=== PATIENT | female | born 1955 | race Caucasian/White ===

== ENCOUNTER 2019-06-28 10:03 | Outpatient (REF) | payer MEDICARE, OTHER, SELFPAY ==
[2019-06-28 19:30] LABS: HCT 39.9 % (36.0-46.0); HGB 13.1 g/dL (12.0-15.5); Mean Corp. HGB Concentration 32.8 g/dL (32.0-36.0); Mean Corpuscular Volume 94.5 fL (80-95); Mean Platelet Volume 10.9 fL (8.0-11.0); Platelet Count 261 x1000/uL (130-400); RBC 4.22 m/cumm (4.00-5.20); RBC Distribution Width 13.2 % (11.7-14.6); White Blood Cell Count 5.63 k/cumm (4.4-10.8)
[2019-06-28 19:39] LABS: Anion Gap 8.4 mmol/L (3-11); BUN 14 mg/dL (7-18); CO2 30.6 mmol/L (21.0-32.0); CREATININE 0.82 mg/dL (0.55-1.02); Calcium 9.6 mg/dL (8.5-10.1); Calculated LDL 146 mg/dL; Chloride 101 mmol/L (98-107); Cholesterol 243 mg/dL (<200); Glucose 92 mg/dL (74-106); HDL Cholesterol 91 mg/dL (40-60); Potassium 4.7 mmol/L (3.5-5.1); Sodium 140 mmol/L (136-145); Triglyceride 33 mg/dL (<150)
== END 2019-06-28 10:23 ==
LOC: NCHCN 10:03
PROVIDERS: PCP Specialist/Technologist Athletic Trainer; Visit Provider Specialist/Technologist Athletic Trainer
DX: E53.8 Deficiency of other specified B group vitamins (principal); E78.00 Pure hypercholesterolemia, unspecified
CPT/HCPCS: 80048; 80061; 85027

== ENCOUNTER 2020-12-02 13:55 | Emergency (ER) | payer MEDICARE, OTHER, SELFPAY ==
[2020-12-02] VITALS (73 sets, daily range): BP systolic 98–128; BP diastolic 65–86; PULSE 61–77; RESP 12–23; TEMP 36.8; O2SAT 93–99
--- NOTE | 2020-12-02 14:00 | DI.CT_ITS ---
Exam(s) CT THORAX CTA EXAM: CT THORAX CTA CLINICAL HISTORY: stabbing left cp and back pain. TECHNIQUE: Imaging Protocol: CT angiography of the chest was performed using pulmonary embolus jd col. Multi planar reconstructions were performed. CONTRAST MATERIAL: Intravenous: Omnipaque 350 Contrast volume: 100 cc COMPARISON: No exams were available for comparison FINDINGS: CHEST: PULMONARY ARTERIES: There are no intraluminal filling defects to suggest acute pulmonary emboli. LUNGS: There are mild dependent markings in the posterior aspect of both lung das. No confluent p ulmonary infiltrates. No evidence of pulmonary infarction.. There are no pleural effusions. There is no pneumothorax. MEDIASTINUM: There is no hilar nor mediastinal adenopathy. Visualized thyroid unremarkable.No axillar y adenopathy. CARDIAC: Heart size is upper normal. There is no pericardial effusion.Caliber of the thoracic aorta is within normal limits. The ascending thoracic aorta diameter is 3.7 cm.. There is no evidence of aortic dissection. No pericardial effusion. There is no significant shift of the interventricular s eptum. PARTIALLY VISUALIZED UPPERMOST ABDOMEN: No adrenal masses. No splenomegaly. Fusion hardware in the lumbar spine noted. OSSEOUS: No significant osseous lesions.. IMPRESSION: 1. No evidence of acute pulmonary emboli. No evidence of pulmonary infarction.No pleural effusions. 2. No evidence of aortic dissection. No pericardial effusion. 3. No intrathoracic adenopathy evident RADIATION DOSE DELIVERED: Total DLP DATA REPOSITORY: All CT scans at this facility are submitted to the National Radiology Data Registry (NRDR) Dose Index Registry (DIR) with the [employer] (A[employer]). RADIATION OPTIMIZATION: All CT scans at this facility use at least one of these dose optimization te chniques: automated exposure control; mA and/or kV adjustment per patient size (includes targeted exa ms where dose is matched to clinical indication); or iterative reconstruction.
--- NOTE | 2020-12-02 14:00 | RT.EKG_ITS ---
APPROVED REPORT Exam: Resting ECG Reason for Exam: chest pain Patient Location: E HR:71 bpm ECG Measurements Heart Rate 71 AXIS WV 157 P 71 QRSd 92 QRS 80 QT 383 T 54 QTc 416 Conclusion Sinus rhythm...normal P axis, V-rate 60- 99 Physician: no stemi
--- NOTE | 2020-12-02 14:01 | DI.CT_ITS ---
Exam(s) CT THORACIC SPINE RECONS EXAM: CT THORACIC SPINE RECONS CLINICAL HISTORY: stabbing upper back pain. TECHNIQUE: Imaging Protocol: Axial computed tomography images with coronal and sagittal reformatted images were created and reviewed. CONTRAST MATERIAL: None COMPARISON: No exams were available for comparison FINDINGS: Bones: No evidence of compression fractures nor listhesis. No kyphosis. No prominent scoliosis. Mu ltilevel anterior osseous lipping evident in the mid-lower thoracic spinal column. No obvious large disc herniations. Soft tissues: No evidence of paraspinal hematoma or mass. No large disk herniations are identified. OTHER: Fusion hardware is noted in the lumbar spine, not included in the field of view here. IMPRESSION: No acute abnormality evident in the osseous thoracic column. RADIATION DOSE DELIVERED: Total DLP DATA REPOSITORY: All CT scans at this facility are submitted to the National Radiology Data Registry (NRDR) Dose Index Registry (DIR) with the [employer] (ACR). RADIATION OPTIMIZATION: All CT scans at this facility use at least one of these dose optimization te chniques: automated exposure control; mA and/or kV adjustment per patient size (includes targeted exa ms where dose is matched to clinical indication); or iterative reconstruction.
--- NOTE | 2020-12-02 14:04 | ED.GENADUL_ITS ---
Discharge Plan Disposition Patient Disposition: HOME Condition: Improving Discharge Details Clinical Impression: Spasm of thoracic back muscle Primary Care Provider: Weston Muniz ED Provider: Bc Kaminski Meds and New Rx's Prescriptions: New methocarbamol 500 mg tablet 1,000 mg PO QID PRN (Reason: spasms) Qty: 20 RF: 0 Continued multivitamin Tablet 1 tab PO DAILY RF: 0 acetaminophen-codeine 300-30 mg Tablet 1 tab PO BID PRNRF: 0 cyanocobalamin (vitamin B-12) 1,000 mcg/mL Solution 1,000 mcg IM Q4W RF: 0 pseudoephedrine HCl [Sudafed] 30 mg Tablet 60 mg PO DAILY RF: 0 aspirin 81 mg Tablet 81 mg PO DAILY RF: 0 mometasone 0.1 % Ointment 1 applic TOPICAL PRN PRNRF: 0 ibuprofen 600 mg Tablet 600 mg PO Q6H PRN PRNRF: 0 cholecalciferol (vitamin D3) 25 mcg (1,000 unit) Tablet 50 mcg PO DAILY RF: 0 Probiotic 10 billion cell Capsule 10 mmu cells PO BID RF: 0 Discontinued cyclobenzaprine 10 mg Tablet 10 mg PO TID PRNRF: 0 Discharge Instructions Instructions: Muscle Spasm (ED) Additional Instructions: Activity as tolerated. Heat to help relax the muscle. Gentle massage and stretching as tolerated. Continue ibuprofen and/or acetaminophen. Discontinue the cyclobenzaprine and begin using methocarbamol. Follow-up with primary care next week if no significant improvement. Return to ED for new/worsening pain, shortness of breath, neurologic changes, other concerns Referrals: Weston Muniz [Primary Care Provider] - Medical Decision Making <Eric Gonsalez DO - Last Filed: 12/02/20 14:43> 65-year-old female with a past medical history of previous lumbar spine surgery, who presents today for evaluation of back and chest pain. Patient states that he states that 2 days ago while she was driving she had a tight bandlike sensation that went around her back and chest primarily on the left-hand side. It occurred while she was just sitting in the car. She felt that it felt like her bra with extra tight. She stated that it later got slightly better, she went to bed when she woke up the next day and subsequently over the last 24 hours the pain has been severe. She describes it as a sharp stabbing sensation that goes right through her chest on the left side. Worse with movement activity and breathing. She describes the pain is severe and debilitating when it does occur. She denies any numbness tingling or weakness in her extremities or legs. She denies any headache or vision changes. She denies any syncope. No other complaints at this time. she did take a Flexeril at home and this did not improve her symptoms. No other modifying factors. Physical exam demonstrates no neurologic deficits, good pulses, no vascular deficits. No reproducible pain in the back or chest. Differential is broad, does include potential spasm but I feel this is less likely. Dissection or atypical cardiac etiology is certainly on the differential and of concern EKG shows no evidence of STEMI or significant heart strain. We will give NSAIDs, get a CTA to evaluate for evidence of dissection, monitor closely and reassess. PE seems unlikely at this time no significant risk factors. Case will be signed out to my colleague Dr. Bc Kaminski for follow-up on labs and imaging. <Bc Kaminski MD - Last Filed: 12/02/20 22:27> Patient had presented with thoracic back spasm and signed out to me pending laboratory studies and CT scan. Please see Dr. Gonsalez's initial note for evaluation and findings. Laboratory studies are unremarkable. CTA of chest negative for PE or dissection. CT thoracic spine normal. On reevaluation patient remains hemodynamically stable. She has no pain lying flat on the stretcher. She develops visible muscle back spasm with pain with any type of ambulation or movement. She had tried cyclobenzaprine at home without use. Will attempt IV diazepam to see if that works any better. Will need to reevaluate for improvement/discharge. 2 doses of IV diazepam did nothing to help the patient with ambulation. There was no significant mental status changes. She was tried with 1 g of methocarbamol. This seemed to work better than anything else and while she still had some pain and discomfort it was much improved. Patient given a second dose of ketorolac prior to discharge. She was also given a to go dose of methocarbamol to use at home later this morning. Prescription for same sent into pharmacy. Continue ibuprofen and acetaminophen. Follow-up with primary care next week if no significant improvement. Return if worse. Lab Data Lab results reviewed: Yes I reviewed the patient's lab results. HPI <Eric Gonsalez, DO - Last Filed: 12/02/20 14:43> General Date/Time Provider Initiated Documentation: 12/02/20 14:01 . HPI Narrative: 65-year-old female with a past medical history of previous lumbar spine surgery, who presents today for evaluation of back and chest pain. Patient states that he states that 2 days ago while she was driving she had a tight bandlike sensation that went around her back and chest primarily on the left-hand side. It occurred while she was just sitting in the car. She felt that it felt like her bra with extra tight. She stated that it later got slightly better, she went to bed when she woke up the next day and subsequently over the last 24 hours the pain has been severe. She describes it as a sharp stabbing sensation that goes right through her chest on the left side. Worse with movement activity and breathing. She describes the pain is severe and debilitating when it does occur. She denies any numbness tingling or weakness in her extremities or legs. She denies any headache or vision changes. She denies any syncope. No other complaints at this time. she did take a Flexeril at home and this did not improve her symptoms. No other modifying factors. Related Data Home Medications Medication Instructions Recorded Confirmed Probiotic 10 mmu cells PO BID 12/02/20 12/02/20 acetaminophen-codeine 1 tab PO BID PRN 12/02/20 12/02/20 aspirin 81 mg PO DAILY 12/02/20 12/02/20 cholecalciferol (vitamin D3) 50 mcg PO DAILY 12/02/20 12/02/20 cyanocobalamin (vitamin B-12) 1,000 mcg IM Q4W 12/02/20 12/02/20 ibuprofen 600 mg PO Q6H PRN PRN 12/02/20 12/02/20 methocarbamol 1,000 mg PO QID PRN #20 tab 12/02/20 mometasone 1 applic TOPICAL PRN PRN 12/02/20 12/02/20 multivitamin 1 tab PO DAILY 12/02/20 12/02/20 pseudoephedrine HCl [Sudafed] 60 mg PO DAILY 12/02/20 12/02/20 Previous Rx's Medication Instructions Recorded methocarbamol 1,000 mg PO QID PRN #20 tab 12/02/20 Allergies Allergy/AdvReac Type Severity Reaction Status Date / Time pepper (genus Capsicum) Allergy Anaphylaxis Unverified 12/02/20 14:05 latex AdvReac Unverified 12/02/20 15:12 Review of Systems <Eric Gonsalez DO - Last Filed: 12/02/20 14:43> All systems reviewed & are unremarkable except as noted in HPI and below PFSH <Eric Gonsalez DO - Last Filed: 12/02/20 14:43> Medical History (Updated 12/02/20 @ 22:21 by Bc Kaminski MD) Acoustic neuroma Avoidance coping Chronic pain Deafness in right ear Degenerative scoliosis Eustachian tube disorder Fatigue Lichen planus Marital problem Onychomycosis of toenail Pneumonia Vitamin B12 deficiency Social History Smoking/Tobacco Use Status: Never Smoking risk assessment performed?: Yes Alcohol Intake: current Alcohol Intake frequency: a few times a month Drug use: Daily Substance use type: marijuana Do you feel safe at home: Yes Do you feel safe in your relationship?: Yes Exam <Eric Gonsalez DO - Last Filed: 12/02/20 14:43> Narrative Exam Narrative: 1.Const: Well-nourished, Well-developed, appearing stated age 2.Eyes: PERRL, no conjunctival injection, and symmetrical lids. 3.ENT: Atraumatic external nose and ears. Moist MM. Neck: Symmetric, trachea midline, No thyromegaly. 4.CVS: +S1/S2, No murmurs or gallops. Peripheral pulses 2+ and equal in all extremities. Brisk capillary refill in all extremities. Radial pulses +2 bilaterally, dorsalis pedis pulses +2 bilaterally. Good capillary refill. Good sensation. 5.RESP: Unlabored respiratory effort. Clear to auscultation bilaterally. No wheezes rales or rhonchi 6.GI: Soft, Nontender/Nondistended, No hepatosplenomegaly. No guarding or rebound. 7.MSK: Normocephalic/Atraumatic, Extremities w/o deformity or ttp No cyanosis or clubbing, Normal movement of all extremities. No midline cervical thoracic or lumbar spine tenderness. No reproducible tenderness around the left ribs or left breast or chest. No tenderness on the right. No evidence of rash or shingles.. No midline tenderness to palpation over the CTLS spine. Normal ROM in flexion, extension, side bend, and rotation. Patient has +5 out of 5 strength in the lower extremities in dorsiflexion and plantarflexion, knee flexion and extension, hip flexion and extension. Normal strength for dorsiflexion and plantar flexion of the great toe bilaterally. There is +2 over 2 dorsalis pedis pulses bilaterally. There is normal sensation to the skin with light touch at the foot, knee, and hip. Normal saddle sensation. Good sensation over the deep sural nerve area bilaterally. Rectal exam demonstrates good rectal tone, good perirectal sensation. Reflexes are +2 over 4 in the patellar reflex bilaterally. +5 out of 5 strength in the medial, ulnar, radial nerve distribution bilaterally in the hands as well as intact light touch sensation to these dermatomes on the hands 8.Skin: Warm, Dry. No rashes or lesions. 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 Sensation grossly intact, no focal neurologic deficits. 10.Psych: (AAO) x3. Appropriate mood and affect Sign Out <Eric Gonsalez DO - Last Filed: 12/02/20 14:43> Sign Out Data: Sign Out Comment: Sudden onset back pain 2 days ago, now stabbing sensation going through her back. Denies numbness tingling or weakness. Pending CTA results. Last updated by Eric Gonsalez DO at 12/02/20 15:01
[2020-12-02 14:30] LABS: Abs Immature Grans 0.01 10^3/uL (0.0-0.06); Absolute Basophil Count 0.01 10^3/uL (0.0-0.2); Absolute Eosinophil Count 0.03 10^3/uL (0.0-0.7); Absolute Lymphocyte Count 1.37 10^3/uL (1.2-3.4); Absolute Monocyte Count 0.72 10^3/uL (0.1-0.8); Absolute Neutrophil Count 4.42 10^3/uL (1.2-6.7); Basophils % 0.2; Eosinophils % 0.5; HCT 35.5 % (36.0-46.0); HGB 11.4 g/dL (11.2-15.7); Immature Grans % 0.2; Lymphocytes % 20.9; MCH 30.4 pg (27.0-33.0); MCHC 32.1 % (32.0-36.0); MCV 94.7 fL (80-95); MPV 10.2 fL (8.0-11.0); Neutrophils % 67.2; Nucleated RBC 0 %; Platelet Count 226 10^3/uL (130-400); RBC 3.75 10^6/uL (3.93-5.22); RDW 13.1 % (11.7-14.6); RDW-SD 45.6 fL; WBC 6.56 10^3/uL (4.4-10.8)
[2020-12-02] MEDS: ACETAMINOPHEN 1,000 MG/100 ML BTL 400 MG IVPB (14:38)
[2020-12-02] MEDS: Ketorolac 30 MG/ML VIAL IVP ×2 (14:38→22:23)
[2020-12-02 14:52] LABS: ALT 22 U/L (14-59); AST 12 U/L (15-37); Albumin 3.1 g/dL (3.4-5.0); Alkaline Phosphatase 22 U/L (46-116); Anion Gap 7.4 mmol/L (3-11); BUN 22 mg/dL (7-18); Bilirubin, Total 0.3 mg/dL (0.2-1.0); CO2 26.6 mmol/L (21.0-32.0); CREATININE 0.8 mg/dL (0.55-1.02); Calcium 8.4 mg/dL (8.5-10.1); Chloride 107 mmol/L (98-107); Glucose 99 mg/dL (74-106); Lipase 79 U/L (73-393); Potassium 3.9 mmol/L (3.5-5.1); Sodium 141 mmol/L (136-145); Total Protein 6.3 g/dL (6.4-8.2); Troponin I < 0.05 ng/mL (<0.06)
[2020-12-02] MEDS: Omnipaque 350 MG/ML 100 ML BTL IJ (16:48)
[2020-12-02] MEDS: Normal Saline - Diluent 50 ML VIAL IV (16:49)
[2020-12-02] MEDS: Normal Saline Flush 10 ML SYR IVP (16:49)
--- NOTE | 2020-12-02 17:27 | DI.VRAD_ITS ---
PROCEDURE INFORMATION: Exam: CTA Chest With Contrast Exam date and time: 12/02/2020 2:04 PM Age: 65 years old Clinical indication: Pain; Radiating; Prior surgery TECHNIQUE: Imaging protocol: Computed tomographic angiography of the chest with contrast. 3D rendering (Not supervised by radiologist): MIP and/or 3D reconstructed images were created by the technologist. Total images: 1670 COMPARISON: No relevant prior studies available. FINDINGS: Pulmonary arteries: Normal. No pulmonary emboli. Aorta: Unremarkable. No aortic aneurysm. No aortic dissection. Lungs: Unremarkable. No consolidation. No masses. Pleural spaces: Unremarkable. No pneumothorax. No pleural effusion. Heart: Unremarkable. No cardiomegaly. No pericardial effusion. Lymph nodes: Unremarkable. No enlarged lymph nodes. Bones/joints: Unremarkable. No acute fracture. Soft tissues: Unremarkable. IMPRESSION: No pulmonary arterial embolism. Dictated and Authenticated by: Mary Ellen Hamilton MD. Ordering:YORDAN Reyes MD
[2020-12-02 17:36] LABS: Troponin I < 0.05 ng/mL (<0.06)
--- NOTE | 2020-12-02 17:36 | DI.VRAD_ITS ---
PROCEDURE INFORMATION: Exam: CT Thoracic Spine Without Contrast Exam date and time: 12/02/2020 2:10 PM Age: 65 years old Clinical indication: Other: Chest pain radiating to back; Prior surgery TECHNIQUE: Imaging protocol: Computed tomography images of the thoracic spine without contrast. Total images: 1071 COMPARISON: No relevant prior studies available. FINDINGS: Vertebrae: No acute fracture. Normal alignment. Discs/Spinal canal/Neural foramina: There are mild multilevel degenerative changes in the thoracic spine. Soft tissues: Unremarkable. IMPRESSION: No acute abnormality. Dictated and Authenticated by: Mary Ellen Hamilton MD. Ordering:YORDAN Reyes MD
[2020-12-02] MEDS: diazePAM 10 MG/2 ML SYR 2.5 MG IVP ×2 (17:55→19:02)
[2020-12-02 18:15] LABS: Bilirubin Negative (Negative); Blood Negative (Negative); Clarity Clear (Clear); Glucose Negative (Negative); Ketones Negative (Negative); Leukocyte Esterase Negative (Negative); Nitrite Negative (Negative); Urobilinogen 0.2 EU/dL (Up TO 0.2); pH 5.5 (5-8)
[2020-12-02] MEDS: Methocarbamol 500 MG TAB 1000 MG PO ×3 (20:25→22:53)
== END 2020-12-02 23:15 | disposition home or self-care (01) ==
PROVIDERS: Student in an Organized Health Care Education/Training Program; Emergency Provider Emergency Medicine; PCP Specialist/Technologist Athletic Trainer
DX: M62.830 Muscle spasm of back (principal)
CPT/HCPCS: 36415; 71275; 80053; 83690; 93005; 96365; 96375; 99285; 81003; 84484; 85025; 93010; 99284; J0131; J1885; J3360; J3490

== ENCOUNTER 2020-12-30 02:43 | Outpatient (CLI) | payer MEDICARE, OTHER, SELFPAY ==
--- NOTE | 2020-12-30 | DI.RAD_ITS ---
Exam(s) XR SCOLIOSIS T-L SPINE EXAM: XR SCOLIOSIS T-L SPINE CLINICAL HISTORY: BACK PAIN, ASSESS FUSION, S/P FUSION L2-S1. TECHNIQUE: 2D digital imaging was performed. COMPARISON: CT CT THORACIC SPINE RECONS from 12/02/2020 FINDINGS: There is a bidirectional scoliosis which is slightly convex right in the mid-lower thoracic spine and convex left in the lumbar spine. In the lumbar spine there is posterior fusion hardware as well as bilateral bone grafts evident from L2 through S1 and there are extensions screws from the lower aspec t of the posterior fusion rods extending through the sacroiliac joints bilaterally. The relationship of the intra pedicular screws relative to the superior endplates appears satisfactory. No radiographi c evidence of osteomyelitis. At the L2 level there is a radiodense plug in the anterior aspect of the L2 vertebral body, this is seated with the anterior aspect of the screws this level. This radiodens ity does not extend anterior to the anterior cortex of L2. In the thoracic spine there is no kyphosis. No compression nor wedge fractures. Some disc space saad rowing is noted at T5-6, T6-7 and T7-T8 levels. Less so at the other levels. No listhesis. Inciden tally noted is (probable developmental) fusion of C3-4 vertebral bodies. There is advanced disc spac e narrowing at C5-6 and C6-7 and anterior osteophytes at these 2 levels. C2-3 exhibits normal disc h eight. Both hips appear unremarkable. IMPRESSION: DATA REPOSITORY: RADIATION DOSE DELIVERED:
== END 2020-12-30 03:03 ==
PROVIDERS: PCP Specialist/Technologist Athletic Trainer; Visit Provider Orthopaedic Surgery Orthopaedic Surgery of the Spine
DX: M43.27 Fusion of spine, lumbosacral region (principal)
CPT/HCPCS: 72081

== ENCOUNTER 2021-08-23 14:47 | Outpatient (REF) | payer MEDICARE, OTHER, SELFPAY ==
[2021-08-23 19:54] LABS: Hemoglobin A1C 5.6 % (<5.7)
[2021-08-23 19:59] LABS: ALT 63 U/L (14-59); AST 62 U/L (15-37); Albumin 3.8 g/dL (3.4-5.0); Alkaline Phosphatase 33 U/L (46-116); Anion Gap 5.5 mmol/L (3-11); BUN 23 mg/dL (7-18); Bilirubin, Total 0.3 mg/dL (0.2-1.0); CO2 29.5 mmol/L (21.0-32.0); CREATININE 0.8 mg/dL (0.55-1.02); Calculated LDL 157 mg/dL (<100); Chloride 104 mmol/L (98-107); Cholesterol 243 mg/dL (<200); Glucose 95 mg/dL (74-106); HDL Cholesterol 77 mg/dL (40-60); Potassium 4.5 mmol/L (3.5-5.1); Sodium 139 mmol/L (136-145); Total Protein 6.8 g/dL (6.4-8.2); Triglyceride 46 mg/dL (<150)
== END 2021-08-23 14:48 | disposition home or self-care (01) ==
LOC: NCHCN 14:47
PROVIDERS: PCP Specialist/Technologist Athletic Trainer; Visit Provider Nurse Practitioner Family
DX: Z00.00 Encounter for general adult medical examination without abnormal findings (principal); R53.81 Other malaise
CPT/HCPCS: 80053; 80061; 83036

== ENCOUNTER → 2023-02-16 01:49 | Outpatient (CLI) | payer MEDICARE, OTHER, SELFPAY ==
--- NOTE | 2023-02-16 12:45 | DI.RAD_ITS ---
Exam(s) XR FOOT LT COMPLETE EXAM: XR FOOT LT COMPLETE CLINICAL HISTORY: Painful bunion lt foot,M79.672,M21.612. TECHNIQUE: 2D digital imaging was performed. Three views. COMPARISON: No exams were available for comparison FINDINGS: BONES: No acute fracture is present. No bony destructive lesion is seen. Plantar calcaneal spur. JOINTS: No dislocation present. First metatarsal varus and hallux valgus. SOFT TISSUE: Mild swelling medial to the 1st meta tarsal head. IMPRESSION: Hallux valgus. Heel spur DATA REPOSITORY: RADIATION DOSE DELIVERED:
== END ==
PROVIDERS: PCP Nurse Practitioner Family; Visit Provider Podiatrist
DX: M20.12 Hallux valgus (acquired), left foot (principal); M77.32 Calcaneal spur, left foot
CPT/HCPCS: 73630

== ENCOUNTER 2023-03-06 16:12 | Outpatient (REF) | payer MEDICARE, OTHER, SELFPAY ==
[2023-03-06 16:15] LABS: Abs Immature Grans 0.01 10^3/uL (0.0-0.06); Absolute Basophil Count 0.03 10^3/uL (0.0-0.2); Absolute Eosinophil Count 0.12 10^3/uL (0.0-0.7); Absolute Lymphocyte Count 1.75 10^3/uL (1.2-3.4); Absolute Monocyte Count 0.45 10^3/uL (0.1-0.8); Absolute Neutrophil Count 3.38 10^3/uL (1.2-6.7); Basophils % 0.5; Eosinophils % 2.1; HCT 43.5 % (36.0-46.0); HGB 13.9 g/dL (11.2-15.7); Immature Grans % 0.2; Lymphocytes % 30.5; MCH 30.3 pg (27.0-33.0); MCV 95 fL (80-95); MPV 11.3 fL (8.0-11.0); Monocytes % 7.8; Neutrophils % 58.9; Platelet Count 229 10^3/uL (130-400); RBC 4.59 10^6/uL (3.93-5.22); RDW 13.8 % (11.7-14.6); RDW-SD 47.8 fL; WBC 5.74 10^3/uL (4.4-10.8)
--- OUTSIDE RECORDS SUMMARY | 2023-03-06 16:15 | XMS_ITS | Continuity of Care Document ---
Author Name Unknown Organization [facility] Address [address] [place] [address] Care Team Providers Care Car Detailer Name Role Phone MICHAEL PERKINS Primary Care Physician [phone] Encounter [facility] FIN NBR [id number] Date(s): 08/03/22 - 08/03/22 [facility] [address], [place] [address] Encounter Diagnosis Nuclear age-related cataract, left eye(Discharge Diagnosis) - 08/01/22 Cortical age-related cataract, left eye(Discharge Diagnosis) - 08/03/22 Discharge Disposition: Home f/u External Provider Attending Physician: Lasha Romeo MD Admitting Physician: Lasha Romeo MD Referring Physician: Lasha Romeo MD Allergies, Adverse Reactions, Alerts Substance Reaction Severity Status Latex Mild Active Howard Peppers Anaphylactic reaction Severe Active Functional Status 08/03/22 Family Member Travel History No recent t ravel Recent Travel History No recent travel Other exposure to Infectious Disease Non e Medications !-Tylenol with Codeine #3 oral tablet 1 tab, Oral, BID, PRN as needed for pain, 0 Refill(s) Start Date: 04/11/22 Status: Ordered Anacin AF 500 mg oral tablet 500 mg = 1 tab, Oral, every 4 hr, PRN as needed for pain, # 24 tab, 0 Refill(s) Start Date: 04/11/22 Status: Ordered aspirin 500 mg oral tablet 500 mg = 1 tab, Oral, every 4 hr, PRN as needed for pain, # 60 tab, 0 Refill(s) Start Date: 08/02/22 Status: Ordered cyanocobalamin 1000 mcg/mL injectable solution 1,000 mcg = 1 mL, IM, every month, # 10 mL, 0 Refill(s) Start Date: 04/11/22 Status: Ordered cyclobenzaprine 10 mg oral tablet 10 mg = 1 tab, Oral, TID, PRN as needed for muscle spasm, # 30 tab, 0 Refill(s) Start Date: 04/11/22 Status: Ordered multivitamin adult, oral tablet 1 tab, Oral, Daily, # 30 tab, 0 Refill(s) Start Date: 04/11/22 Status: Ordered Nyquil Cold and Flu Nighttime oral liquid PRN as needed for cold symptoms, 0 Refill(s) Start Date: 04/11/22 Status: Ordered prednisolone/moxifloxacin/nepafenac 1%-0.5%-0.1% ophthalmic suspension 1 drops, OPHTH, As Directed, 0 Refill(s) Start Date: 08/03/22 Status: Ordered Probiotic 10 Ultra Strength oral capsule 0 Refill(s) Start Date: 04/11/22 Status: Ordered Sudafed 30 mg oral tablet 30 mg = 1 tab, Oral, every 6 hr, PRN as needed for congestion, 0 Refill(s) Start Date: 04/11/22 Status: Ordered Vitamin D3 1000 intl units oral capsule 25 mcg = 1 cap, Oral, Daily, # 100 cap, 0 Refill(s) Start Date: 04/11/22 Status: Ordered Problem List Condition Confirmation Course Effective Dates Status H ealth Status Informant Acoustic neuroma Confirmed Active Arthritis Confirmed Active Arthritis of carpometacarpal joint of left thumb Confirmed Active Avoidance coping Confirmed Active Chronic pain Confirmed Active Deafness of left ear Confirmed Active Degenerative joint disease Confirmed Active Eustachian tube dysfunction Confirmed Active Fatigue Confirmed Active History of COVID-19 1 Confirmed 02/03/22 Active History of pneumonia Confirmed Active Lichen planus Confirmed Active Medication monitoring Confirmed Active Neuropathy 2 Confirmed Active Ocular migraine Confirmed Active Onychomycosis of toenails Confirmed Active Osteopenia Confirmed Active Snoring Confirmed Active Spinal stenosis Confirmed Active Vertigo Confirmed Active Vitamin B12 deficiency Confirmed Active 1asymptomatic 2right leg Procedures Procedure Date Related Diagnosis Body Site Status Cataract Extraction with IOL (Left) 1 08/03/22 Completed Colonoscopy Biopsy 2 04/18/22 Comp leted Colonoscopy, flexible; diagn ostic, including collection of specimen(s) by brushing or washing, when performed (separate procedure) 04/17/22 Completed Adenotonsillectomy Comple cindi Colonoscopy Completed Craniotomy Completed Hysterectomy Completed Labyrinthectomy 3 Complet ed ORIF - Open reduction and in ternal fixation of fracture Completed Spinal laminectomy Comple cindi 1auto-populated from documented surgical case 2auto-populated from documented surgical case 3LEFT TRANSLABYRINTHINE ( TUMOR REMOVED) Vital Signs Most recent to oldest [Reference Range]: 1 2 3 Temperature Temporal Artery [36-38 Deg C] 36.4 Deg C (08/03/22 12:02 PM) Peripheral Pulse Rate [60-100 bpm] 75 bpm (08/03/22 2:12 PM) 75 bpm (08/03/22 2:08 PM) 73 bpm (08/03/22 1:46 PM) Heart Rate Monitored [60-100 bpm] 68 bpm (08/03/22 12:02 PM) Respiratory Rate [12-24 br/min] 19 br/min (08/03/22 12:02 PM) Blood Pressure [90-140/60-90 mmHg] 122/67mmHg (08/03/22 1:46 PM) 118/74mmHg (08/03/22 12:02 PM) Mean Arterial Pressure, Cuff [65-140 mmHg] 85 mmHg (08/03/22 1:46 PM) Mean Arterial Pressure Cuff 85 mmHg (08/03/22 1:46 PM) Blood Pressure Location Right arm (08/03/22 1:46 PM) Blood Pressure Method Automatic (08/03/22 1:46 PM) Weight 73.000 kg (08/02/22 12:47 PM) Weight Dosing 73.000 kg (08/02/22 12:47 PM) Height 170.000 cm (08/02/22 12:47 PM) Height/Length Dosing 170.000 cm (08/02/22 12:47 PM) Social History Social History Type Response Smoking Status Smoking tobacco use: Former tobacco user;Never 1 entered on: 04/11/22 Sex 1quit 20 years ago Implantable Device List Procedure Provider Procedure Date Device Type Site Extracapsular cataract remov al with insertion of intraocular lens prosthesis (1 stage procedure), manual or mechanical technique (eg, irrigation and aspiration or phacoemulsification); without endoscopic cyclophotocoagulation Lasha Romeo MD 08/03/22 Non Biological Eye L Device Identifier Serial Number Lot or Batch Number Manufacturing Date Expiration Date Distinct Identification Code MRI Safety Implantable Status Assigning Authority Unknown [id number] Unknown Unknown 12/18/24 Unknown Unknown Active Unknown History and physical note * Event Display: History and Physical Patient Care team information Care Team Personnel Name: MICHAEL PERKINS Position: No Access Member Role: Primary Care Physician Address: Address: [address] [place] [address] [address] [place] [address]- [place] Care Team Related Persons Name: WILLIAM ALCALA Name: CAROLE SHAFFER
--- OUTSIDE RECORDS SUMMARY | 2023-03-06 16:15 | XMS_ITS | Continuity of Care Document ---
Author Name Unknown Organization [facility] Address [address] [place] [address] Encounter [facility] FIN NBR [id number] Date(s): 04/18/22 - 04/18/22 [facility] [address] [place], [place] [address] Encounter Diagnosis Encounter for screening colonoscopy(Discharge Diagnosis) - 04/18/22 Discharge Disposition: Home or Self Care Attending Physician: Waqas Guillaume MD Admitting Physician: Waqas Guillaume MD Referring Physician: Waqas Guillaume MD Allergies, Adverse Reactions, Alerts Substance Reaction Severity Status Latex Mild Active Howard Peppers Severe Active Functional Status 04/18/22 Living Situation Home with family car e ADLs Independent Family Member Travel History No recent t [...] 0 Refill(s) Start Date: 04/11/22 Status: Ordered cyanocobalamin 1000 mcg/mL injectable solution [...] 0 Refill(s) Start Date: 04/11/22 Status: Ordered Probiotic 10 Ultra Strength oral [...] Confirmed Active Fatigue Confirmed Active History of pneumonia Confirmed Active Lichen planus Confirmed Active Medication monitoring Confirmed Active Onychomycosis of toenails Confirmed Active Osteopenia Confirmed Active Spinal stenosis Confirmed Active Vitamin B12 deficiency Confirmed Active Procedures Procedure Date Related Diagnosis Body Site Status Colonoscopy Biopsy 1 04/18/22 Comp leted Adenotonsillectomy Comple cindi Colonoscopy Completed Craniotomy Completed Hysterectomy Completed Labyrinthectomy 2 Complet ed ORIF - Open reduction and in ternal fixation of fracture Completed Spinal laminectomy Comple cindi 1auto-populated from documented surgical case 2LEFT TRANSLABYRINTHINE ( TUMOR REMOVED) Vital Signs Most recent to oldest [Reference Range]: 1 2 3 Temperature Temporal Artery [36-38 Deg C] 36.0 Deg C (04/18/22 12:14 PM) 36.2 Deg C (04/18/22 11:17 AM) Temperature Temporal Artery (DegF) [97.3-100 Deg F] 97.16 Deg F *LOW* (04/18/22 11:17 AM) Peripheral Pulse Rate [60-100 bpm] 77 bpm (04/18/22 11:17 AM) Heart Rate Monitored [60-100 bpm] 80 bpm (04/18/22 11:17 AM) Blood Pressure [90-140/60-90 mmHg] 113/76mmHg (04/18/22 12:14 PM) 143/72mmHg *HI* (04/18/22 11:17 AM) Mean Arterial Pressure, Cuff [65-140 mmHg] 96 mmHg (04/18/22 11:17 AM) Mean Arterial Pressure Cuff 90 mmHg (04/18/22 11:17 AM) Weight 72.570 kg (04/18/22 11:09 AM) 72.570 kg (04/11/22 9:34 AM) Weight Dosing 72.570 kg (04/18/22 11:09 AM) 72.570 kg (04/11/22 9:34 AM) Height 167.640 cm (04/18/22 11:09 AM) 167.640 cm (04/18/22 11:09 AM) 167.640 cm (04/11/22 9:34 AM) Height/Length Dosing 167.640 cm (04/18/22 11:09 AM) 167.640 cm (04/18/22 11:09 AM) 167.640 cm (04/11/22 9:34 AM) Body Mass Index 25.820 kg/m2 (04/18/22 11:09 AM) Social History Social History Type Response Smoking Status Smoking tobacco use: Former tobacco user;Never 1 entered on: 04/11/22 Sex 1quit 20 years ago Hospital Discharge Instructions Patient Education 04/18/2022 11:21:19 Diverticulosis Diverticulosis Diverticulosis is a condition that develops when small pouches (diverticula) form in the wall of the large intestine (colon). The colon is where water is absorbed and stool (feces) is formed. The pouches form when the inside layer of the colon pushes through weak spots in the outer layers of the colon. You may have a few pouches or many of them. The pouches usually do not cause problems unless they become inflamed or infected. When this happens, the condition is called diverticulitis. What are the causes? The cause of this condition is not known. What increases the risk? The following factors may make you more likely to develop this condition: ??? Being older than age 60. Your risk for this condition increases with age. Diverticulosis is rare among people younger than age 30. By age 80, many people have it. ??? Eating a low-fiber diet. ??? Having frequent constipation. ??? Being overweight. ??? Not getting enough exercise. ??? Smoking. ??? Taking ocff-rhr-fjsheeh pain medicines, like aspirin and ibuprofen. ??? Having a family history of diverticulosis. What are the signs or symptoms? In most people, there are no symptoms of this condition. If you do have symptoms, they may include: ??? Bloating. ??? Cramps in the abdomen. ??? Constipation or diarrhea. ??? Pain in the lower left side of the abdomen. How is this diagnosed? Because diverticulosis usually has no symptoms, it is most often diagnosed during an exam for othercolon problems. The condition may be diagnosed by: ??? Using a flexible scope to examine the colon (colonoscopy). ??? Taking an X-ray of the colon after dye has been put into the colon (barium enema). ??? Having a CT scan. How is this treated? You may not need treatment for this condition. Your health care provider may recommend treatment toprevent problems. You may need treatment if you have symptoms or if you previously had diverticulitis. Treatment may include: ??? Eating a high-fiber diet. ??? Taking a fiber supplement. ??? Taking a live bacteria supplement (probiotic). ??? Taking medicine to relax your colon. Follow these instructions at home: Medicines ??? Take ddqh-wkc-zhyppjn and prescription medicines only as told by your health care provider. ??? If told by your health care provider, take a fiber supplement or probiotic. Constipation prevention Your condition may cause constipation. To prevent or treat constipation, you may need to: ??? Drink enough fluid to keep your urine pale yellow. ??? Take vcfz-mmf-azxfeqn or prescription medicines. ??? Eat foods that are high in fiber, such as beans, whole grains, and fresh fruits and vegetables. ??? Limit foods that are high in fat and processed sugars, such as fried or sweet foods. General instructions ??? Try not to strain when you have a bowel movement. ??? Keep all follow-up visits as told by your health care provider. This is important. Contact a health care provider if you: ??? Have pain in your abdomen. ??? Have bloating. ??? Have cramps. ??? Have not had a bowel movement in 3 days. Get help right away if: ??? Your pain gets worse. ??? Your bloating becomes very bad. ??? You have a fever or chills, and your symptoms suddenly get worse. ??? You vomit. ??? You have bowel movements that are bloody or black. ??? You have bleeding from your rectum. Summary ??? Diverticulosis is a condition that develops when small pouches (diverticula) form in the wall of the large intestine (colon). ??? You may have a few pouches or many of them. ??? This condition is most often diagnosed during an exam for other colon problems. ??? Treatment may include increasing the fiber in your diet, taking supplements, or taking medicines. This information is not intended to replace advice given to you by your health care provider. Make sure you discuss any questions you have with your health care provider. Document Revised: 12/19/2019 Document Reviewed: 12/19/2019 [employer] Patient Education ?? 2021 [employer]. 04/18/2022 11:21:18 Colonoscopy, Adult, Care After Colonoscopy, Adult, Care After This sheet gives you information about how to care for yourself after your procedure. Your health care provider may also give you more specific instructions. If you have problems or questions, contact your health care provider. What can I expect after the procedure? After the procedure, it is common to have: ??? A small amount of blood in your stool for 24 hours after the procedure. ??? Some gas. ??? Mild cramping or bloating of your abdomen. Follow these instructions at home: Eating and drinking ??? Drink enough fluid to keep your urine pale yellow. ??? Follow instructions from your health care provider about eating or drinking restrictions. ??? Resume your normal diet as instructed by your health care provider. Avoid heavy or fried foods that are hard to digest. Activity ??? Rest as told by your health care provider. ??? Avoid sitting for a long time without moving. Get up to take short walks every 1???2 hours. This is important to improve blood flow and breathing. Ask for help if you feel weak or unsteady. ??? Return to your normal activities as told by your health care provider. Ask your health care provider what activities are safe for you. Managing cramping and bloating ??? Try walking around when you have cramps or feel bloated. ??? Apply heat to your abdomen as told by your health care provider. Use the heat source that your health care provider recommends, such as a moist heat pack or a heating pad. ??? Place a towel between your skin and the heat source. ??? Leave the heat on for 20???30 minutes. ??? Remove the heat if your skin turns bright red. This is especially important if you are unable to feel pain, heat, or cold. You may have a greater risk of getting burned. General instructions ??? If you were given a sedative during the procedure, it can affect you for several hours. Do not drive or operate machinery until your health care provider says that it is safe. ??? For the first 24 hours after the procedure: ??? Do not sign important documents. ??? Do not drink alcohol. ??? Do your regular daily activities at a slower pace than normal. ??? Eat soft foods that are easy to digest. ??? Take azru-uek-sgdnqup and prescription medicines only as told by your health care provider. ??? Keep all follow-up visits as told by your health care provider. This is important. Contact a health care provider if: ??? You have blood in your stool 2???3 days after the procedure. Get help right away if you have: ??? More than a small spotting of blood in your stool. ??? Large blood clots in your stool. ??? Swelling of your abdomen. ??? Nausea or vomiting. ??? A fever. ??? Increasing pain in your abdomen that is not relieved with medicine. Summary ??? After the procedure, it is common to have a small amount of blood in your stool. You may also have mild cramping and bloating of your abdomen. ??? If you were given a sedative during the procedure, it can affect you for several hours. Do not drive or operate machinery until your health care provider says that it is safe. ??? Get help right away if you have a lot of blood in your stool, nausea or vomiting, a fever, or increased pain in your abdomen. This information is not intended to replace advice given to you by your health care provider. Make sure you discuss any questions you have with your health care provider. Document Revised: 05/15/2020 Document Reviewed: 12/16/2019 [employer] Patient Education ?? 2021 [employer]. Follow Up Care 03/18/2022 08:14:28 With:Return to referring provider Address:Unknown When:1 month Discharge instructions * Nichol Allison: PERFORM Event Display: Discharge Instructions Authored Date: [id number] JAMI MCKINNEY :1955 Age:67 years Sex:Female Visit Date:04/18/2022 Hospital Discharge Instructions We would like to thank you for allowing us to assist you with your healthcare needs. The following includes patient education materials and information regarding your injury/illness. After you leave the hospital, you may get your health information including your test results, physician notes and discharge information by accessing your Patient Portal. Your Next Steps Follow Up Appointments Follow Up with??Return to referring provider When:??Within 1 month Medications What How Much When Instructions Next Dose Unchanged acetaminophen (Anacin AF 500 mg oral tablet) 1 tab Oral (given by mouth) Every 4 hours as needed for as needed for pain Unchanged acetaminophen-codeine (!-Tylenol with Codeine #3 oral tablet) 1 tab Oral (given by mouth) 2 times a day as needed for as needed for pain Unchanged bifidobacterium-lactobacillus (Probiotic 10 Ultra Strength oral capsule) Unchanged cholecalciferol (Vitamin D3 1000 intl units oral capsule) 1 Capsules Oral (given by mouth) Every day Unchanged cyanocobalamin (cyanocobalamin 1000 mcg/ mL injectable solution) 1 Milliliters Intramuscular (in a muscle) Once a month Unchanged cyclobenzaprine (cyclobenzaprine 10 mg oral tablet) 1 tab Oral (given by mouth) 3 times a day as needed for as needed for muscle spasm Unchanged dextromethorphan/ APAP/ doxylamine (Nyquil Cold and Flu Nighttime oral liquid) As needed for as needed for cold symptoms Unchanged multivitamin (multivitamin adult, oral tablet) 1 tab Oral (given by mouth) Every day Unchanged pseudoephedrine (Sudafed 30 mg oral tablet) 1 tab Oral (given by mouth) Every 6 hours as needed for as needed for congestion Your Summary Your Care Team Admitting Physician - Waqas Guillaume MD Attending Physician - Waqas Guillaume MD Referring Physician - Waqas Guillaume MD Your Diagnosis Encounter for screening colonoscopy Problems Ongoing - Any problem that you are currently receiving treatment for. Acoustic neuroma Arthritis Arthritis of carpometacarpal joint of left thumb Avoidance coping Chronic pain Deafness of left ear Degenerative joint disease Eustachian tube dysfunction Fatigue History of pneumonia Lichen planus Medication monitoring Onychomycosis of toenails Osteopenia Spinal stenosis Vitamin B12 deficiency Procedures Performed ???Colonoscopy Biopsy (04/18/2022)???Adenotonsillectomy???Colonoscopy???Craniotomy???Hysterectomy??? Labyrinthectomy???ORIF - Open reduction and internal fixation of fracture???Spinal laminectomy Discharge Vitals Temperature??(Temporal Artery) 96.8 ??F (36.0 ??C) Heart Rate??(Monitored) 80 Heart Rate??(Peripheral) 77 Blood Pressure?? 113/76?? Height?? 66.00 in (167.640 cm) Height?? 66.00 in (167.640 cm) Weight?? 160.02 lb (72.570 kg) BMI?? 25.820 Allergies Howard Peppers [employer] Diverticulosis Diverticulosis is a condition that develops when small pouches (diverticula) form in the wall of the large intestine (colon). The colon is where water is absorbed and stool (feces) is formed. The pouches form when the inside layer of the colon pushes through weak spots in the outer layers of the colon. You may have a few pouches or many of them. The pouches usually do not cause problems unless they become inflamed or infected. When this happens, the condition is called diverticulitis. What are the causes? The cause of this condition is not known. What increases the risk? The following factors may make you more likely to develop this condition: ? Being older than age 60. Your risk for this condition increases with age. Diverticulosis is rare among people younger than age 30. By age 80, many people have it. ? Eating a low-fiber diet. ? Having frequent constipation. ? Being overweight. ? Not getting enough exercise. ? Smoking. ? Taking gjfn-bhz-mcqxwcw pain medicines, like aspirin and ibuprofen. ? Having a family history of diverticulosis. What are the signs or symptoms? In most people, there are no symptoms of this condition. If you do have symptoms, they may include: ? Bloating. ? Cramps in the abdomen. ? Constipation or diarrhea. ? Pain in the lower left side of the abdomen. How is this diagnosed? Because diverticulosis usually has no symptoms, it is most often diagnosed during an exam for othercolon problems. The condition may be diagnosed by: ? Using a flexible scope to examine the colon (colonoscopy). ? Taking an X-ray of the colon after dye has been put into the colon (barium enema). ? Having a CT scan. How is this treated? You may not need treatment for this condition. Your health care provider may recommend treatment toprevent problems. You may need treatment if you have symptoms or if you previously had diverticulitis. Treatment may include: ? Eating a high-fiber diet. ? Taking a fiber supplement. ? Taking a live bacteria supplement (probiotic). ? Taking medicine to relax your colon. Follow these instructions at home: Medicines ? Take eqcf-tqw-gzxqtwv and prescription medicines only as told by your health care provider. ? If told by your health care provider, take a fiber supplement or probiotic. Constipation prevention Your condition may cause constipation. To prevent or treat constipation, you may need to: ? Drink enough fluid to keep your urine pale yellow. ? Take misa-eot-mcfzfxi or prescription medicines. ? Eat foods that are high in fiber, such as beans, whole grains, and fresh fruits and vegetables. ? Limit foods that are high in fat and processed sugars, such as fried or sweet foods. General instructions ? Try not to strain when you have a bowel movement. ? Keep all follow-up visits as told by your health care provider. This is important. Contact a health care provider if you: ? Have pain in your abdomen. ? Have bloating. ? Have cramps. ? Have not had a bowel movement in 3 days. Get help right away if: ? Your pain gets worse. ? Your bloating becomes very bad. ? You have a fever or chills, and your symptoms suddenly get worse. ? You vomit. ? You have bowel movements that are bloody or black. ? You have bleeding from your rectum. Summary ? Diverticulosis is a condition that develops when small pouches (diverticula) form in the wall of the large intestine (colon). ? You may have a few pouches or many of them. ? This condition is most often diagnosed during an exam for other colon problems. ? Treatment may include increasing the fiber in your diet, taking supplements, or taking medicines. This information is not intended to replace advice given to you by your health care provider. Make sure you discuss any questions you have with your health care provider. Document Revised: 12/19/2019 Document Reviewed: 12/19/2019 [employer] Patient Education ?? 2021 [employer]. Colonoscopy, Adult, Care After This sheet gives you information about how to care for yourself after your procedure. Your health care provider may also give you more specific instructions. If you have problems or questions, contact your health care provider. What can I expect after the procedure? After the procedure, it is common to have: ? A small amount of blood in your stool for 24 hours after the procedure. ? Some gas. ? Mild cramping or bloating of your abdomen. Follow these instructions at home: Eating and drinking ? Drink enough fluid to keep your urine pale yellow. ? Follow instructions from your health care provider about eating or drinking restrictions. ? Resume your normal diet as instructed by your health care provider. Avoid heavy or fried foods thatare hard to digest. Activity ? Rest as told by your health care provider. ? Avoid sitting for a long time without moving. Get up to take short walks every 1???2 hours. This isimportant to improve blood flow and breathing. Ask for help if you feel weak or unsteady. ? Return to your normal activities as told by your health care provider. Ask your health care provider what activities are safe for you. Managing cramping and bloating ? Try walking around when you have cramps or feel bloated. ? Apply heat to your abdomen as told by your health care provider. Use the heat source that your health care provider recommends, such as a moist heat pack or a heating pad. ? Place a towel between your skin and the heat source. ? Leave the heat on for 20???30 minutes. ? Remove the heat if your skin turns bright red. This is especially important if you are unable to feel pain, heat, or cold. You may have a greater risk of getting burned. General instructions ? If you were given a sedative during the procedure, it can affect you for several hours. Do not drive or operate machinery until your health care provider says that it is safe. ? For the first 24 hours after the procedure: ? Do not sign important documents. ? Do not drink alcohol. ? Do your regular daily activities at a slower pace than normal. ? Eat soft foods that are easy to digest. ? Take gflk-ddd-ntlhpea and prescription medicines only as told by your health care provider. ? Keep all follow-up visits as told by your health care provider. This is important. Contact a health care provider if: ? You have blood in your stool 2???3 days after the procedure. Get help right away if you have: ? More than a small spotting of blood in your stool. ? Large blood clots in your stool. ? Swelling of your abdomen. ? Nausea or vomiting. ? A fever. ? Increasing pain in your abdomen that is not relieved with medicine. Summary ? After the procedure, it is common to have a small amount of blood in your stool. You may also have mild cramping and bloating of your abdomen. ? If you were given a sedative during the procedure, it can affect you for several hours. Do not drive or operate machinery until your health care provider says that it is safe. ? Get help right away if you have a lot of blood in your stool, nausea or vomiting, a fever, or increased pain in your abdomen. This information is not intended to replace advice given to you by your health care provider. Make sure you discuss any questions you have with your health care provider. Document Revised: 05/15/2020 Document Reviewed: 12/16/2019 [employer] Patient Education ?? 2021 [employer] Patient Name:JAMI MCKINNEY I have received this information and my questions have been answered. Patient/Film Reader Name: Patient/Film Reader Signature: Relationship to Patient: Witness Name/Signature: Date: Electronically Signed on: 04/18/2022 12:32 ESTSigned by:TOI * Event Display: Discharge Instructions History and physical note * Event Display: History and Physical Update * Waqas Guillaume MD: PERFORM Event Display: History and Physical Authored Date: [id number] JAMI MCKINNEY :1955 Age:67 years Sex:Female Visit Date:04/18/2022 History of Present Illness 67-year-old female at average risk for colorectal cancer. Review of Systems Negative Physical Exam Vitals & Measurements T:??36.2?C ??(Temporal Artery)?? HR:??77??(Peripheral)?? HR:??80??(Monitored)?? BP:??143/72?? SpO2:??100%?? HT:??167.640??cm?? HT:??167.640??cm?? WT:??72.570??kg?? BMI:??25.820?? Well-developed well-nourished white female no acute distress Lungs: Clear to auscultation bilaterally Heart: Regular rhythm S1-S2 Abdomen: Soft nontender Assessment/Plan 1.??Encounter for screening colonoscopy??Z12.11 Colonoscopy??today. Problem List/Past Medical History Ongoing Acoustic neuroma Arthritis Arthritis of carpometacarpal joint of left thumb Avoidance coping Chronic pain Deafness of left ear Degenerative joint disease Eustachian tube dysfunction Fatigue History of pneumonia Lichen planus Medication monitoring Onychomycosis of toenails Osteopenia Spinal stenosis Vitamin B12 deficiency Historical No qualifying data Procedure/Surgical History ???Adenotonsillectomy???Colonoscopy???Craniotomy???Hysterectomy???Labyrinthectom y???ORIF - Open reduction and internal fixation of fracture???Spinal laminectomy Medications Inpatient No active inpatient medications Home !-Tylenol with Codeine #3 oral tablet, 1 tab, Oral, BID, PRN Anacin AF 500 mg oral tablet, 500 mg= 1 tab, Oral, every 4 hr, PRN cyanocobalamin 1000 mcg/mL injectable solution, 1000 mcg= 1 mL, IM, every month cyclobenzaprine 10 mg oral tablet, 10 mg= 1 tab, Oral, TID, PRN multivitamin adult, oral tablet, 1 tab, Oral, Daily Nyquil Cold and Flu Nighttime oral liquid, PRN Probiotic 10 Ultra Strength oral capsule Sudafed 30 mg oral tablet, 30 mg= 1 tab, Oral, every 6 hr, PRN Vitamin D3 1000 intl units oral capsule, 25 mcg= 1 cap, Oral, Daily Allergies Howard Peppers Latex Social History Alcohol Current, 3-5 times per week Electronic Cigarette/Vaping Electronic Cigarette Use: Never. Tobacco Former tobacco user Tobacco Use:. Never Smokeless Tobacco use:.- Comments: quit 20 years ago Electronically Signed on 04/18/22 12:15 PM Waqas Guillaume MD
--- OUTSIDE RECORDS SUMMARY | 2023-03-06 16:15 | XMS_ITS | Continuity of Care Document ---
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(Discharge Diagnosis) - 08/15/22 Discharge Disposition: Home f/u Internal Provider Attending Physician: Lasha Romeo MD Admitting Physician: Lasha Romeo MD Referring Physician: Lasha Romeo MD Allergies, Adverse Reactions, Alerts Substance Reaction Severity Status Latex Mild Active Howard Peppers Anaphylactic reaction Severe Active Functional Status 08/17/22 Recent Travel History No recent travel Other [...] Body Site Status Cataract Extraction with IOL (Right) 1 08/17/22 Completed Cataract Extraction with IOL (Left) 2 08/03/22 Completed Colonoscopy Biopsy 3 04/18/22 Comp leted Colonoscopy, flexible; diagn ostic, including collection of specimen(s) by brushing or washing, when performed (separate procedure) 04/17/22 Completed Adenotonsillectomy Comple cindi Colonoscopy Completed Craniotomy Completed Hysterectomy Completed Labyrinthectomy 4 Complet ed ORIF - Open reduction and in ternal fixation of fracture Completed Spinal laminectomy Comple cindi 1auto-populated from documented surgical case 2auto-populated from documented surgical case 3auto-populated from documented surgical case 4LEFT TRANSLABYRINTHINE ( TUMOR REMOVED) Vital Signs Most recent to oldest [Reference Range]: 1 2 3 Temperature Temporal Artery [36-38 Deg C] 36.2 Deg C (08/17/22 10:48 AM) 37.2 Deg C (08/17/22 9:13 AM) Temperature Temporal Artery (DegF) [97.3-100 Deg F] 97.16 Deg F *LOW* (08/17/22 10:48 AM) Apical Heart Rate [60-100 bpm] 66 bpm (08/17/22 9:13 AM) Peripheral Pulse Rate [60-100 bpm] 65 bpm (08/17/22 11:05 AM) 68 bpm (08/17/22 11:00 AM) 59 bpm *LOW* (08/17/22 10:49 AM) Respiratory Rate [12-24 br/min] 14 br/min (08/17/22 9:13 AM) Blood Pressure [90-140/60-90 mmHg] 117/81mmHg (08/17/22 11:05 AM) 119/80mmHg (08/17/22 11:00 AM) 131/80mmHg (08/17/22 10:49 AM) Mean Arterial Pressure, Cuff [65-140 mmHg] 93 mmHg (08/17/22 11:05 AM) 93 mmHg (08/17/22 11:00 AM) 97 mmHg (08/17/22 10:49 AM) Mean Arterial Pressure Cuff 93 mmHg (08/17/22 11:05 AM) 93 mmHg (08/17/22 11:00 AM) 96 mmHg (08/17/22 10:49 AM) Blood Pressure Location Right arm (08/17/22 10:49 AM) Left arm (08/17/22 9:13 AM) Blood Pressure Method Automatic (08/17/22 9:13 AM) Weight 73.000 kg (08/15/22 9:47 AM) Weight Dosing 73.000 kg (08/15/22 9:47 AM) Height 170.000 cm (08/15/22 9:47 AM) Height/Length Dosing 170.000 cm (08/15/22 9:47 AM) Social History Social History Type Response Smoking Status Smoking tobacco use: Former tobacco user;Never 1 entered on: 04/11/22 Sex 1quit 20 years ago Implantable Device List Procedure Provider Procedure Date Device Type Site Extracapsular cataract remov al with insertion of intraocular lens prosthesis (1 stage procedure), manual or mechanical technique (eg, irrigation and aspiration or phacoemulsification); without endoscopic cyclophotocoagulation Lasha Romeo MD 08/17/22 Non Biological Eye R Device Identifier Serial Number Lot or Batch Number Manufacturing Date Expiration Date Distinct Identification Code MRI Safety Implantable Status Assigning Authority Unknown [id number] Unknown Unknown 12/20/24 Unknown Unknown Active Unknown Procedure Provider Procedure Date Device Type Site Extracapsular cataract remov al with insertion of intraocular lens prosthesis (1 stage procedure), manual or mechanical technique (eg, irrigation and aspiration or phacoemulsification); without endoscopic cyclophotocoagulation Lasha Romeo MD 08/03/22 Non Biological Eye L Device Identifier Serial Number Lot or Batch Number Manufacturing Date Expiration Date Distinct Identification Code MRI Safety Implantable Status Assigning Authority Unknown [id number] Unknown Unknown 12/18/24 Unknown Unknown Active Unknown Patient Care team information Care Team Personnel Name: MICHAEL PERKINS Position: No Access Member Role: Primary Care Physician Address: Address: [address] [place] [address] [place] [id number] [place] [address] Care Team Related Persons Name: WILLIAM ALCALA Address: Home Name: CAROLE SHAFFER Address: Home
[2023-03-06 16:38] LABS: Hemoglobin A1C 5.7 % (<5.7)
[2023-03-06 17:10] LABS: Vitamin D 25 Total 76.2 ng/mL (30-100)
[2023-03-06 17:14] LABS: ALT 35 U/L (14-59); AST 25 U/L (15-37); Albumin 3.8 g/dL (3.4-5.0); Alkaline Phosphatase 32 U/L (46-116); Anion Gap 7.5 mmol/L (3-11); BUN 24 mg/dL (7-18); Bilirubin, Total 0.4 mg/dL (0.2-1.0); CO2 28.5 mmol/L (21.0-32.0); CREATININE 0.9 mg/dL (0.55-1.02); Calcium 9.5 mg/dL (8.5-10.1); Calculated LDL 164 mg/dL (<100); Chloride 103 mmol/L (98-107); Cholesterol 256 mg/dL (<200); Estimated GFR 69.64 (mL/min/1.73m2); Glucose 100 mg/dL (74-106); HDL Cholesterol 82 mg/dL (40-60); Potassium 4.3 mmol/L (3.5-5.1); Sodium 139 mmol/L (136-145); TSH (W/Ref FT4) 1.94 uIU/mL (0.36-3.74); Total Protein 7.4 g/dL (6.4-8.2); Triglyceride 51 mg/dL (<150); Vitamin B12 891 pg/mL (193-986)
== END 2023-03-06 16:13 | disposition home or self-care (01) ==
LOC: NCHCN 16:12
PROVIDERS: PCP Nurse Practitioner Family; Visit Provider Nurse Practitioner Family
DX: E53.8 Deficiency of other specified B group vitamins (principal); Z00.00 Encounter for general adult medical examination without abnormal findings
CPT/HCPCS: 80053; 80061; 82306; 82607; 83036; 84443; 85025

== ENCOUNTER → 2023-06-29 03:06 | Outpatient (CLI) | payer MEDICARE, OTHER, SELFPAY ==
--- NOTE | 2023-06-29 08:57 | DI.CT_ITS ---
Exam(s) CT SINUS WO EXAM: CT SINUS WO CLINICAL HISTORY: CHRONIC LT MAXILLARY PRESSURE,HEADACHE,R51.9. Evaluate for sinusitis. TECHNIQUE: Imaging Protocol: Axial computed tomography images with coronal and sagittal reformatted images were created and reviewed. COMPARISON: No exams were available for comparison FINDINGS: AXIAL IMAGES: Frontal sinuses: Normally aerated. Ethmoid air cells: Normally aerated. Maxillary sinuses: There is minimal mucosal thickening in the floor of the maxillary sinuses. No flu id levels are seen. Sphenoid sinus: Normally aerated. Ostiomeatal complexes: Patent. Osseous nasal septum: Midline. Visualized regional soft tissues: No acute findings. Orbits: Unremarkable. Bones: Unremarkable. Mastoid Air Cells: There are postsurgical changes seen in the left mastoid sinuses. The right mastoi d sinuses are clear. IMPRESSION: 1. Minimal mucosal thickening seen in the floor of the maxillary sinuses. No air-fluid levels are pr esent. 2. Postsurgical changes in the left mastoid air cells. RADIATION DOSE DELIVERED: 119.71mGy.cm Total DLP 119.71mGy.cm Total DLP DATA REPOSITORY: All CT scans at this facility are submitted to the National Radiology Data Registry (NRDR) Dose Index Registry (DIR) with the [employer] (A[employer]). RADIATION OPTIMIZATION: All CT scans at this facility use at least one of these dose optimization te chniques: automated exposure control; mA and/or kV adjustment per patient size (includes targeted exa ms where dose is matched to clinical indication); or iterative reconstruction.
== END ==
PROVIDERS: PCP Nurse Practitioner Family; Visit Provider Otolaryngology
DX: R51.9 Headache, unspecified (principal); Z98.890 Other specified postprocedural states; J32.0 Chronic maxillary sinusitis
CPT/HCPCS: 70486

== ENCOUNTER → 2023-07-10 08:23 | Outpatient (BNVA) | payer MEDICARE, OTHER, SELFPAY | PROVIDERS: PCP Nurse Practitioner Family; Referring Provider Nurse Practitioner Family; Visit Provider Podiatrist | DX: B35.1 Tinea unguium (principal); L60.3 Nail dystrophy | CPT/HCPCS: 99213 ==

== ENCOUNTER 2023-09-04 09:43 | Outpatient (REF) | payer MEDICARE, OTHER, SELFPAY ==
[2023-09-04 15:41] LABS: Calculated LDL 149 mg/dL (<100); Cholesterol 233 mg/dL (<200); HDL Cholesterol 72 mg/dL (40-60); Triglyceride 62 mg/dL (<150)
== END 2023-09-04 09:44 | disposition home or self-care (01) ==
LOC: NCHCN 09:43
PROVIDERS: PCP Nurse Practitioner Family; Visit Provider Nurse Practitioner Family
DX: E78.5 Hyperlipidemia, unspecified (principal)
CPT/HCPCS: 80061

== ENCOUNTER → 2023-10-09 07:59 | Outpatient (BNVA) | payer MEDICARE, OTHER, SELFPAY | PROVIDERS: PCP Nurse Practitioner Family; Referring Provider Nurse Practitioner Family; Visit Provider Podiatrist | DX: B35.1 Tinea unguium; L60.3 Nail dystrophy | CPT/HCPCS: 99213 ==

== ENCOUNTER → 2023-10-10 11:45 | Outpatient (CLI) | payer MEDICARE, OTHER, SELFPAY ==
--- NOTE | 2023-10-10 12:12 | DI.RAD_ITS ---
Exam(s) XR CHEST 2V PA LATERAL EXAM: XR CHEST 2V PA LATERAL CLINICAL HISTORY: R05.9 cough, r/o infiltrate or lesion TECHNIQUE: 2D digital imaging was performed of the chest. Two images were obtained. PA and lateral views were obtained. COMPARISON: No exams were available for comparison FINDINGS: MEDIASTINUM: Normal. HEART: Normal. PULMONARY VASCULATURE: Normal. LUNGS: Clear. PLEURAL SPACE: No pleural effusion or pneumothorax. BONE:Within normal limits for the patient's age. Posterior spinal fixation rods are partially seen i n the lumbar spine. OTHER FINDINGS:Normal. IMPRESSION: No acute pulmonary findings. DATA REPOSITORY: RADIATION DOSE DELIVERED:
== END ==
PROVIDERS: PCP Nurse Practitioner Family; Visit Provider Physician Assistant
DX: R05.9 Cough, unspecified (principal)
CPT/HCPCS: 71046

== ENCOUNTER → 2024-03-21 15:24 | Outpatient (BNVA) | payer MEDICARE, OTHER, SELFPAY | PROVIDERS: PCP Nurse Practitioner Family; Referring Provider Nurse Practitioner Family; Visit Provider Podiatrist | DX: B35.1 Tinea unguium (principal); L60.3 Nail dystrophy | CPT/HCPCS: 99213 ==

== ENCOUNTER → 2024-07-25 14:53 | Outpatient (BNVA) | payer MEDICARE, OTHER, SELFPAY | PROVIDERS: PCP Nurse Practitioner Family; Referring Provider Nurse Practitioner Family; Visit Provider Podiatrist | DX: L60.3 Nail dystrophy (principal); B35.1 Tinea unguium; M79.672 Pain in left foot; L60.0 Ingrowing nail | CPT/HCPCS: 99214 ==

== ENCOUNTER → 2024-11-21 12:56 | Outpatient (BNVA) | payer MEDICARE, OTHER, SELFPAY | PROVIDERS: PCP Nurse Practitioner Family; Referring Provider Nurse Practitioner Family; Visit Provider Podiatrist | DX: L60.3 Nail dystrophy (principal); B35.1 Tinea unguium; L60.0 Ingrowing nail; M79.672 Pain in left foot; B96.5 Pseudomonas (aeruginosa) (mallei) (pseudomallei) as the cause of diseases classified elsewhere; B48.8 Other specified mycoses | CPT/HCPCS: 99213; 11755 ==

== ENCOUNTER → 2025-01-14 13:53 | Outpatient (BNVA) | payer MEDICARE, OTHER, SELFPAY | PROVIDERS: PCP Nurse Practitioner Family; Referring Provider Nurse Practitioner Family; Visit Provider Podiatrist | DX: B35.1 Tinea unguium (principal); L60.3 Nail dystrophy; L60.0 Ingrowing nail; M79.672 Pain in left foot; M79.674 Pain in right toe(s) | CPT/HCPCS: 99214 ==

== ENCOUNTER 2025-01-14 16:02 | Outpatient (CLI) | payer MEDICARE, OTHER, SELFPAY ==
[2025-01-14 14:52] LABS: ESR 13 mm/hr (0-30)
[2025-01-14 14:53] LABS: Abs Immature Grans 0.01 10^3/uL (0.0-0.06); HCT 39.1 % (36.0-46.0); HGB 12.7 g/dL (11.2-15.7); Immature Grans % 0.2 %; MCH 30.5 pg (27.0-33.0); MCHC 32.5 % (32.0-36.0); MCV 94 fL (80-95); MPV 10.0 fL (8.0-11.0); Platelet Count 225 10^3/uL (130-400); RBC 4.16 10^6/uL (3.93-5.22); RDW 13.1 % (11.7-14.6); RDW-SD 45.4 fL; WBC 6.11 10^3/uL (4.4-10.8)
[2025-01-14 15:04] LABS: C-Reactive Protein < 0.50 mg/dL (<or=0.5)
== END 2025-01-14 16:03 | disposition home or self-care (01) ==
LOC: LBO 16:03
PROVIDERS: PCP Nurse Practitioner Family; Visit Provider Podiatrist
DX: M79.674 Pain in right toe(s) (principal)
CPT/HCPCS: 36415; 85652; 86200; 85025; 86038; 86140; 86431

== ENCOUNTER 2025-01-14 16:14 | Outpatient (CLI) | payer MEDICARE, OTHER, SELFPAY ==
--- NOTE | 2025-01-14 14:37 | DI.RAD_ITS ---
Exam(s) XR FOOT RT COMPLETE EXAM: XR FOOT RT COMPLETE CLINICAL HISTORY: Right second toe pain, m79.674, ? psoriatic. TECHNIQUE: 2D digital imaging was performed of the right foot. Three images were obtained. AP, oblique and lateral views were obtained. COMPARISON: CR XR FOOT LT COMPLETE from 02/16/2023 FINDINGS: BONES: No acute fracture is present. No bony destructive lesion is seen. JOINTS: No dislocation present. The 2nd toe is unremarkable. The joint spaces are well maintained. No erosions or soft tissue calcifications are seen. No periostitis is seen. The bones are normally mineralized. SOFT TISSUE: Normal. IMPRESSION: Unremarkable appearance of the right 2nd toe. DATA REPOSITORY: RADIATION DOSE DELIVERED:
== END 2025-01-14 16:34 ==
LOC: DI 16:14
PROVIDERS: PCP Nurse Practitioner Family; Visit Provider Podiatrist
DX: M79.674 Pain in right toe(s) (principal)
CPT/HCPCS: 36415; 85652; 86200; 99214; 73630; 85025; 86038; 86140; 86431

== ENCOUNTER → 2025-02-20 11:33 | Outpatient (BNVA) | payer MEDICARE, OTHER, SELFPAY | PROVIDERS: PCP Nurse Practitioner Family; Referring Provider Nurse Practitioner Family; Visit Provider Podiatrist | DX: L60.3 Nail dystrophy (principal); B35.1 Tinea unguium; L60.0 Ingrowing nail; M79.672 Pain in left foot; M79.674 Pain in right toe(s); R25.2 Cramp and spasm | CPT/HCPCS: 99214 ==